=== PATIENT | female | born 1990 | race Caucasian/White ===

== ENCOUNTER 2017-06-09 23:49 | Emergency (ER) | payer BC ==
[~2017-06-09] VITALS: Ht 165.1 cm; Wt 63.5 kg
--- NOTE | ~2017-06-09 | S ---
[facility] [address] [place] [address] SURGICAL PATH RPT PROCEDURE Name: SO ADAME Room #: DEP Trina#: [id number] Admission: 06/09/17 Date of : 86 Discharge: 06/10/17 Report #: [id number] Path Case #: [id number] PATHOLOGY REPORT COLLECTION DATE: 06/10/2017 RECEIVED DATE: 06/11/2017 SUBMITTING PHYS: Dr. Kelly De La Rosa OTHER PHYS: SPECIMEN(S) RECEIVED: A.Uterine-vaginal bleeding * * * * * * * * * * * * FINAL DIAGNOSIS: "Assess for products of conception": - Fragments of immature chorionic villi as well as membranes, consistent with products of conception. - Negative for hydropic change or villous edema. - Degenerative changes identified within placental villi, compatible with the history of incomplete . - Fetus with a klvmd-tw-scyl length of 7.3 cm and and head circumfernce of 8.8 cm, approximately 13-14 weeks' gestation (gross exam only). (IUV:rlm; 06/13/2017) PATHOLOGIST: Ngoc Eaton M.D. REPORT ELECTRONICALLY SIGNED BY: Ngoc Eaton M.D. DATE/TIME: 06/13/2017 15:57 * * * * * * * * * * * * GROSS PATHOLOGY: Received are two containers of formalin, labeled "So Adame," and additionally labeled on the requisition as, "assess for products of conception". The first container contains a moderate amount of blood coagulum admixed with white-walker spongiform tissue with adherent membranes measuring 6.1 x 5.5 x 2.4 cm in aggregate dimensions. or embryonic tissue is not grossly identified. The specimen is submitted representatively in cassettes A1 through A3. The second container contains an intact fetus displaying 10 fingers and 10 toes. There is a slight amount of skin slippage which is causing the ears to be off-center. The skin is dusky vaz-walker to vaz-brown in appearance. There is a slight amount of attached umbilical cord measuring 5.1 cm in length by 0.3 cm in diameter. The vessel count cannot be grossly determined. The mouth is probe patent; the anus is not probe patent. The sex of the fetus is unable to be determined and displays the following measurements: [facility] [address] [place] [address] SURGICAL PATH RPT PROCEDURE Name: SO ADAME Room #: DEP Trina#: [id number] Admission: 06/09/17 Date of : 86 Discharge: 06/10/17 Report #: [id number] Path Case #: [id number] [place]-rump: 7.3 cm [place]-heel: 9.8 cm Foot length: 0.9 cm Hand length: 0.7 cm Head circumference: 8.8 cm Eye distance: 0.8 cm. Gross photographs are taken. Sections are not submitted. (CAA; 06/12/2017) CLINICAL HISTORY: Vaginal bleeding in INITIAL CPT CODE(S): A; 53363 Professional services performed by [facility] at [facility] [address], [place] [address] Technical services performed by [facility] at [address] [place] [address], [facility] [address], [place] [address]. [facility] [address] [place] [address] PHONE: [phone] DIRECTOR: Harrison Damico M.D. * * * END OF REPORT * * *
[2017-06-10 01:12] LABS: HEMATOCRIT 41.1 % (37.0-47.0); HEMOGLOBIN 14.4 gm/dL (12.0-15.0); MCH 30.9 pg (26.0-34.0); MCHC 34.9 g/dL (28.0-37.0); MCV 88.6 fL (80.0-100.0); RBC 4.64 mil/uL (4.20-5.00); RDW 12.9 % (10.5-14.5); WBC 9.6 thou/uL (4.0-11.0)
[2017-06-10] MEDS ORDERED: LEVOTHYROXINE100 MC1 IV (01:46)
[2017-06-10 05:11] VITALS: BP 108/60
== END 2017-06-10 05:12 | disposition short-term general hospital (02) ==
LOC: ER 23:49
PROVIDERS: Emergency Medicine
DX: O03.4 Incomplete spontaneous abortion without complication (principal); O36.4XX0 Maternal care for intrauterine death, not applicable or unspecified; J45.909 Unspecified asthma, uncomplicated; Z88.0 Allergy status to penicillin; Z3A.15 15 weeks gestation of pregnancy